=== PATIENT | female | born 1965 | race Caucasian/White ===

== ENCOUNTER 2017-04-18 06:57 | Day surgery (SDC) | payer BC, OTHER ==
[2017-04-17 10:24] VITALS: BMI 24.5
--- NOTE | 2017-04-17 21:20 | HP ---
DATE OF ADMISSION: 04/18/2017 HISTORY OF PRESENT ILLNESS: This is a 52-year-old female who comes for a colonoscopy for c olon cancer screening. The patient has no specific GI symptoms. Her bowel movements are regular. MEDICAL ILLNESSES: 1. Hyperlipidemia. 2. Migraine. ALLERGIES: None. SOCIAL HISTORY: The patient does not smoke but drinks alcohol socially. PHYSICAL EXAMINATION: VITAL SIGNS: Pulse is 70, blood pressure 130/80. HEENT: Conjunctivae clear. CARDIOVASCULAR: First and second heart sounds are normal. LUNGS: Clear to auscultation. ABDOMEN: Soft to palpate. No organomegaly. No tenderness. No masses. ADMITTING DIAGNOSIS: Colon cancer screening. PLAN: Colonoscopy.
--- NOTE | 2017-04-18 11:21 | OP ---
DATE OF PROCEDURE: 04/18/2017 SURGEON: Jhoan Landaverde M.D. OPERATIVE PROCEDURE: Colonoscopy. PREOPERATIVE DIAGNOSES: Colon cancer screening. POSTOPERATIVE DIAGNOSES: Sigmoid diverticulosis and also occasional diverticula over the hepatic fl exure, ascending colon area. The colon is tortuous. PROCEDURE IN DETAIL: The patient was placed on her left lateral position and was given sedation by A nesthesia Department. A rectal exam was done before the scope was advanced into the rectum. No lesi ons were felt on rectal exam. A Pentax video colonoscope was introduced into the rectum and advanced all the way into the cecum. The colon was redundant. Abdominal compression, the scope was advanced all the way into the cecum. The appendical opening, ileocecal valve, and cecum, no pathology seen. The mucosa appeared normal throughout the colon with normal vascular pattern. The patient did have some diverticula over the ascending colon, hepatic flexure. The transverse colon, splenic flexure, a nd descending colon, no pathology seen. The sigmoid colon again shows mild diverticular disease. Re ctum showed no lesions. DISCHARGE PLANNING: This is a 52-year-old female who came in for colonoscopy for colon can cer screening. The colonoscopy showed no pathology except for scattered diverticulosis. DISCHARGE RECOMMENDATIONS: 1. The patient advised to call me if she develops abdominal pain, hematochezia or fever. 2. High-fiber diet. 3. Repeat colonoscopy in 10 years as she has no family history of colon cancer.
[2017-04-18] MEDS ORDERED: Lidocaine 1% PF 5 ML VIAL ONE (13:40)
[2017-04-18] MEDS ORDERED: Propofol 200 MG/20 ML VIAL ONE (13:40)
== END 2017-04-18 10:20 | disposition home or self-care (01) ==
LOC: SDC 06:57
PROVIDERS: ATTEND Internal Medicine Gastroenterology
PROC: 0DJD8ZZ Inspection of Lower Intestinal Tract, Via Natural or Artificial Opening Endoscopic (ICD-10-PCS; principal; 2017-04-18)
DX: Z12.11 Encounter for screening for malignant neoplasm of colon (principal); K57.30 Diverticulosis of large intestine without perforation or abscess without bleeding; E78.5 Hyperlipidemia, unspecified; G43.909 Migraine, unspecified, not intractable, without status migrainosus; Z79.899 Other long term (current) drug therapy; Z90.89 Acquired absence of other organs
CPT/HCPCS: J2001; J2704

== ENCOUNTER 2018-03-04 08:49 | Outpatient (CLI) | payer BC, OTHER ==
--- NOTE | 2018-03-04 12:05 | MMO ---
BILATERAL SCREENING MAMMOGRAM: Comparison: 10-19-16, 08-12-15, 03-24-10 History: Annual screening exam. This study is interpreted with the assistance of computer aided detection. FINDINGS: The breasts are heterogeneously dense. There is an asymmetric area within the central aspect of the l eft breast seen on the CC projection, not definitely visualized on the MLO view although it would pro bably be in the central to upper portion of the left breast if this is anything other than overlappin g breast tissue. No suspicious calcifications or other signs of malignancy. IMPRESSION: BIRADS category 0 - incomplete. Further imaging required. In this case, focal tomographic mammogram e xamination is recommended with focal spot views of the area marked in the CC projection. POS: ROBBIE
== END 2018-03-04 08:50 | disposition home or self-care (01) ==
LOC: SCSMAMMO 08:49
PROVIDERS: ATTEND Family Medicine
DX: Z12.31 Encounter for screening mammogram for malignant neoplasm of breast (principal)
CPT/HCPCS: 77067

== ENCOUNTER 2018-03-13 12:48 | Outpatient (CLI) | payer BC, OTHER | END 2018-03-13 12:49 | disposition home or self-care (01) | LOC: BICMAMMO 12:48 | PROVIDERS: ATTEND Family Medicine | DX: R92.2 Inconclusive mammogram (principal) | CPT/HCPCS: G0279 ==